=== PATIENT | female | born 1955 | race Hispanic/Latino ===

== ENCOUNTER 2018-02-21 11:12 | Outpatient (CLI) | payer BC | END 2018-02-21 11:13 | disposition home or self-care (01) | LOC: BICRAD 11:12 | PROVIDERS: ATTEND Internal Medicine | DX: M54.5 Low back pain (principal); M54.6 Pain in thoracic spine; M47.896 Other spondylosis, lumbar region; M47.894 Other spondylosis, thoracic region; M25.78 Osteophyte, vertebrae | CPT/HCPCS: 72072; 72100 ==

== ENCOUNTER 2018-03-07 10:50 | Outpatient (CLI) | payer BC ==
--- NOTE | 2018-03-07 14:08 | ULT ---
ULTRASOUND ABDOMEN: Date: 03/07/18 HISTORY: Abdominal pain. COMPARISON: Abdomen ultrasound from 2016. TECHNIQUE: Real-time Tam scale and color evaluation of the abdomen was performed. FINDINGS: The visualized portion of the pancreas is unremarkable. There is increased hepatic texture. Prior cho lecystectomy. Visualized portions of the aorta and IVC are unremarkable. Portal vein is patent. The common bile duct size is upper limits of normal, measuring under 1.0 cm, although can be reservoi r effect. Right kidney measures 9.1 x 4.8 x 6.5 c. Left kidney measures 10.1 x 5.1 x 6.1 cm. No renal mass, hyd ronephrosis or abnormal calcifications. Spleen measured 11.0 cm in length. IMPRESSION: 1. Increased hepatic texture suggest steatosis. 2. Likely reservoir effect of common bile duct. POS: [facility]
== END 2018-03-07 10:51 | disposition home or self-care (01) ==
LOC: ULT 10:50
PROVIDERS: ATTEND Internal Medicine
DX: R10.11 Right upper quadrant pain (principal); K76.89 Other specified diseases of liver
CPT/HCPCS: 76700

== ENCOUNTER 2018-05-09 08:23 | Outpatient (CLI) | payer BC ==
--- NOTE | 2018-05-09 11:09 | MRI ---
MRI OF THE ABDOMEN WITHOUT CONTRAST: Date 05/09/18 INDICATION: History of abnormal CT and ultrasound evaluation. COMPARISON: Prior abdominal ultrasound dated 03/07/18. TECHNIQUE: Multiplanar, multisequence MR images were obtained of the abdomen without IV contrast utilizing a [facility] P protocol. FINDINGS: The bone marrow signal intensity appears within normal limits. The spleen measures 11.4 cm in length. There are tiny subcentimeter cysts within both kidneys. The gallbladder is surgically absent. The common bile duct is dilated, measuring 1.2 cm, which is sli ghtly more prominent than on the ultrasound examination dated 03/07/18. There is mild intrahepatic bi liary ductal dilatation. Pancreas, adrenal glands, spleen, and kidneys demonstrate a normal signal intensity. No enlarged lymp h nodes or free fluid is evident. There is mild fatty infiltration of the liver seen on in and [id number] images. IMPRESSION: 1. Some slight dilatation of the common bile duct, likely related to reservoir effect on patient's p ost cholecystectomy state. 2. Mild fatty liver. 3. Small, subcentimeter, cysts bilaterally. POS: [facility]
== END 2018-05-09 08:24 | disposition home or self-care (01) ==
LOC: MRI 08:23
PROVIDERS: ATTEND Internal Medicine Gastroenterology
DX: R10.11 Right upper quadrant pain (principal); R93.89 Abnormal findings on diagnostic imaging of other specified body structures; N28.1 Cyst of kidney, acquired; K76.0 Fatty (change of) liver, not elsewhere classified; K83.8 Other specified diseases of biliary tract
CPT/HCPCS: 74181

== ENCOUNTER 2018-12-15 13:57 | Emergency (ER) | payer BC ==
[2018-12-15 14:37] LABS: #Basophils 0.1 thou/uL (0.0-0.2); #Eosinphils 0.4 thou/uL (0.0-0.7); #Lymphocytes 1.4 thou/uL (1.20-3.40); #Monocytes 0.4 thou/uL (0.11-0.59); #Neutrophils 6.1 thou/uL (1.40-6.50); %Basophils 0.9 % (0.0-1.0); %Eosinophils 4.7 % (0.0-10.0); %Lymphocytes 16.8 % (21.0-51.0); %Monocytes 4.6 % (0.0-10.0); Hemoglobin 13.3 g/dL (12.0-16.0); Mean Corpuscular HGB CONC 33.2 g/dL (32.0-36.0); Mean Corpuscular Hemoglobin 30.4 pg (27.0-31.0); Mean Corpuscular Volume 91.7 fL (78.0-98.0); Mean Platelet Volume 8.7 fL (7.4-10.4); Platelet Count 250 thou/uL (130-400); RBC Distribution Width 12.8 % (11.5-14.5); Red Blood Cell (RBC) Count 4.36 mill/uL (4.20-5.40); White Blood Cell (WBC) Count 8.4 thou/uL (4.8-10.8)
[2018-12-15 14:42] LABS: ALT (SGPT) 12 U/L (8-55); AST (SGOT) 12 U/L (5-34); Albumin 3.7 g/dL (3.4-4.8); Alkaline Phosphatase 114 U/L (40-150); Anion Gap 13 mmol/L (10-20); BUN (Urea Nitrogen) 14 mg/dL (9.8-20.1); Bilirubin, Total 0.8 mg/dL (0.2-1.2); CK (CPK) 94 U/L (29-168); Calc. Creatinine Clearance 0 mL/min (70-130); Calcium 8.9 mg/dL (7.8-10.44); Carbon Dioxide 28 mmol/L (23-31); Chloride 104 mmol/L (98-107); Estimated GFR-MDRD 71; Globulin 2.7 g/dL (2.4-3.5); Glucose 109 mg/dL (80-115); Lipase 23 U/L (8-78); Potassium 3.1 mmol/L (3.5-5.1); Protein, Total 6.4 g/dL (6.0-8.3); Sodium 142 mmol/L (136-145)
--- NOTE | 2018-12-15 14:50 | RAD ---
PORTABLE CHEST: HISTORY: Epigastric and chest pain. FINDINGS: Heart size and mediastinum are within normal limits. Lungs are clear of infiltrates. No significant bony findings. IMPRESSION: No active intrathoracic disease. POS: [facility]
[2018-12-15] MEDS ORDERED: Aspirin Chewable 81 MG TAB ONE ×2 (16:28)
[2018-12-15 16:37] LABS: Bilirubin Negative (Negative); Blood, Urine Negative (Negative); Clarity CLEAR (Clear); Glucose, Urine (Dipstick) Negative (Negative); Leukocyte Trace (Negative); Nitrite Negative (Negative); Protein, Urine (Dipstick) Negative (Neg-Trace); Specific Gravity, Urine 1.017 (1.002-1.036); Urobilinogen 0.2 mg/dL (0.2-1.0)
[2018-12-15 17:07] LABS: RBC/HPF None Seen HPF (0-3); Squamous Epithelial 0-3 HPF (0-3); WBC/HPF 0-3 HPF (0-3)
[2018-12-15 17:08] LABS: Bacteria/HPF None Seen HPF (None Seen); Hyaline Casts/LPF NONE SEEN LPF (0-3 Hyaline)
[2018-12-15 18:35] LABS: Troponin I Less than 0.010 ng/mL (< 0.028)
== END 2018-12-15 18:50 | disposition home or self-care (01) ==
LOC: ERS 13:57
DX: R10.13 Epigastric pain (principal); R11.0 Nausea; R53.83 Other fatigue
CPT/HCPCS: 36415; 71045; 80053; 81003; 81015; 82550; 83690; 83880; 84484; 85025; 93005

== ENCOUNTER 2020-08-16 08:34 | Outpatient (CLI) | payer MEDICARE ==
--- NOTE | 2020-08-16 09:05 | ULT ---
GALLBLADDER ULTRASOUND: HISTORY: Right upper quadrant abdominal pain FINDINGS: The liver demonstrates increased echogenicity without focal mass or intrahepatic biliary ductal dilat ation.The patient is post cholecystectomy. The right kidney is normal. The pancreas is not well visualized due to overlying bowel gas.The common duct [id number] in diameter. No free fluid is seen in the Lara's pouch. IMPRESSION: 1. Fatty liver 2. Status post cholecystectomy with dilated bile duct.
== END 2020-08-16 08:35 | disposition home or self-care (01) ==
LOC: BICULT 08:34
PROVIDERS: ATTEND Physician Assistant Medical
DX: R10.11 Right upper quadrant pain (principal); K76.0 Fatty (change of) liver, not elsewhere classified; K21.9 Gastro-esophageal reflux disease without esophagitis; E66.01 Morbid (severe) obesity due to excess calories; K83.8 Other specified diseases of biliary tract; Z90.49 Acquired absence of other specified parts of digestive tract
CPT/HCPCS: 76705

== ENCOUNTER 2021-07-17 20:26 | Inpatient (IN) | payer MEDICARE ==
[2021-07-17] MEDS ORDERED: Acetaminophen 500 MG TAB ONE (22:28)
[2021-07-17] MEDS ORDERED: Ketorolac Tromethamine 30 MG/ML VIAL ONE (22:28)
[2021-07-17 22:58] LABS: #Eosinphils 0.1 thou/uL (0.0-0.7); #Monocytes 0.9 thou/uL (0.11-0.59); #Neutrophils 11.5 thou/uL (1.40-6.50); %Basophils 0.3 % (0.0-1.0); %Eosinophils 0.9 % (0.0-10.0); %Lymphocytes 7.6 % (21.0-51.0); %Monocytes 6.8 % (0.0-10.0); %Neutrophils 84.4 % (42.0-75.0); Hemoglobin 13.7 g/dL (12.0-16.0); Mean Corpuscular HGB CONC 32.6 g/dL (32.0-36.0); Mean Corpuscular Volume 91.8 fL (78.0-98.0); Mean Platelet Volume 8.2 fL (7.4-10.4); Platelet Count 246 thou/uL (130-400); RBC Distribution Width 12.8 % (11.5-14.5); Red Blood Cell (RBC) Count 4.57 mill/uL (4.20-5.40); White Blood Cell (WBC) Count 13.6 thou/uL (4.8-10.8)
[2021-07-17] MEDS ORDERED: Azithromycin 500 MG VIAL ONE (23:06)
[2021-07-17] MEDS ORDERED: cefTRIAXone\\ROCEPHIN 1 GM VIAL ONE (23:06)
[2021-07-17 23:19] LABS: ALT (SGPT) 18 U/L (8-55); AST (SGOT) 12 U/L (5-34); Albumin 3.6 g/dL (3.4-4.8); Alkaline Phosphatase 94 U/L (40-110); Anion Gap 14 mmol/L (10-20); BUN (Urea Nitrogen) 16 mg/dL (9.8-20.1); Bilirubin, Total 0.6 mg/dL (0.2-1.2); Calc. Creatinine Clearance 0 mL/min (70-130); Calcium 8.2 mg/dL (7.8-10.44); Carbon Dioxide 28 mmol/L (23-31); Chloride 101 mmol/L (98-107); Globulin 3.1 g/dL (2.4-3.5); Glucose 166 mg/dL (80-115); Potassium 3.3 mmol/L (3.5-5.1); Protein, Total 6.7 g/dL (5.8-8.1); Sodium 140 mmol/L (136-145)
[2021-07-18] MEDS ORDERED: Benzonatate 100 MG CAP PO PRN (00:46)
[2021-07-18] MEDS ORDERED: HumaLOG 300 UNITS/3 ML VIAL SC PRN ×2 (00:50)
[2021-07-18] MEDS ORDERED: Dextrose 5% in Water 1,000 ML IV PRN (00:50)
[2021-07-18] MEDS ORDERED: Dextrose 50% Abboject 50 ML SYRINGE SLOW IVP PRN (00:50)
[2021-07-18] MEDS ORDERED: Albuterol Sulfate 2.5 mg/3 ml Neb NEB PRN (00:51)
[2021-07-18] MEDS ORDERED: Ondansetron PF 4 MG/2 ML Vial IVP PRN (00:53)
[2021-07-18] MEDS ORDERED: Ondansetron ODT 4 MG TAB PO PRN (00:53)
[2021-07-18] MEDS ORDERED: Senokot S 8.6-50 MG TAB PO PRN (00:53)
[2021-07-18] MEDS: Acetaminophen 325 MG TAB PO PRN ×2 (01:14→08:48)
[2021-07-18] MEDS ORDERED: Morphine 4 MG/ML VIAL SLOW IVP PRN (01:17)
[2021-07-18 01:52] VITALS: BMI 43.4
[2021-07-18] MEDS: Sodium Chloride 0.9% 1,000 ML IV SCH ×2 (01:54→09:50)
[2021-07-18] MEDS ORDERED: Potassium Chloride 20 MEQ TAB PO SCH (02:00)
[2021-07-18 02:52] LABS: SARS-CoV-2 NAA Rapid Test Not Detected (NotDetected)
[2021-07-18 04:05] LABS: Magnesium 1.8 mg/dL (1.6-2.6)
[2021-07-18 05:51] LABS: #Eosinphils 0.2 thou/uL (0.0-0.7); #Lymphocytes 1.6 thou/uL (1.20-3.40); #Monocytes 1.1 thou/uL (0.11-0.59); #Neutrophils 8.1 thou/uL (1.40-6.50); %Basophils 0.3 % (0.0-1.0); %Eosinophils 1.7 % (0.0-10.0); %Lymphocytes 14.7 % (21.0-51.0); %Monocytes 9.9 % (0.0-10.0); %Neutrophils 73.4 % (42.0-75.0); Hemoglobin 11.3 g/dL (12.0-16.0); Mean Corpuscular HGB CONC 32.9 g/dL (32.0-36.0); Mean Corpuscular Hemoglobin 30.4 pg (27.0-31.0); Mean Corpuscular Volume 92.5 fL (78.0-98.0); Mean Platelet Volume 7.8 fL (7.4-10.4); Platelet Count 193 thou/uL (130-400); RBC Distribution Width 12.6 % (11.5-14.5); Red Blood Cell (RBC) Count 3.72 mill/uL (4.20-5.40); White Blood Cell (WBC) Count 11.1 thou/uL (4.8-10.8)
[2021-07-18 06:13] LABS: Anion Gap 10 mmol/L (10-20); BUN (Urea Nitrogen) 16 mg/dL (9.8-20.1); Calc. Creatinine Clearance 95 mL/min (70-130); Calcium 7.5 mg/dL (7.8-10.44); Carbon Dioxide 24 mmol/L (23-31); Chloride 106 mmol/L (98-107); Glucose 118 mg/dL (80-115); Potassium 3.2 mmol/L (3.5-5.1); Sodium 137 mmol/L (136-145)
[2021-07-18] MEDS ORDERED: predniSONE 20 MG TAB PO SCH (08:00)
[2021-07-18] MEDS ORDERED: Famotidine 20 MG TAB PO SCH (09:00)
[2021-07-18] MEDS ORDERED: Enoxaparin Sodium 40 MG/0.4 ML SYRINGE SC SCH (09:00)
[2021-07-18 10:09] LABS: Bacteria/HPF None Seen HPF (None Seen); Bilirubin Negative (Negative); Blood, Urine Negative (Negative); Clarity Clear (Clear); Glucose, Urine (Dipstick) Normal (Negative); Ketone, Urine Negative (Negative); Leukocyte Negative Leu/uL (Negative); Nitrite Negative (Negative); Protein, Urine (Dipstick) 20 mg/dL (Neg-Trace); Squamous Epithelial 0-3 HPF (0-3); Urobilinogen Normal mg/dL (Less than 2); WBC/HPF 0-3 HPF (0-3); pH, Urine 6.5 (5.0-9.0)
[2021-07-18 10:12] LABS: Specific Gravity, Urine Greater than 1.060 (1.002-1.036)
[2021-07-18 10:13] LABS: Urine Culture Reflex No No
[2021-07-18 10:35] LABS: Legionella Urinary Ag Negative (Negative); Strep pneumo Urine Ag NEGATIVE (NEGATIVE)
[2021-07-18 12:04] VITALS: BP 111/73; TEMP 98.6
[2021-07-18] MEDS ORDERED: Cefdinir 300 MG CAP PO SCH (14:45)
[2021-07-18] MEDS ORDERED: Azithromycin 250 MG TAB PO SCH ×2 (14:45→15:45)
[2021-07-18] MEDS ORDERED: cefTRIAXone\\ROCEPHIN 1 GM in Sodium Chloride 0.9% 100 ML IVPB SCH (23:00)
[2021-07-18] MEDS ORDERED: Azithromycin 500 MG in Sodium Chloride 0.9% 250 ML 250 ML IVPB SCH (23:00)
[2021-07-21] MEDS ORDERED: FLU VACC QS2021-22(6MOS UP)/PF 60 MCG/0.5 ML SYRINGE IM ONE (09:00)
== END 2021-07-18 16:38 | disposition home or self-care (01) | DRG 871 ==
LOC: ERS 20:26 → T4-A 23:51
PROVIDERS: ADMIT Student in an Organized Health Care Education/Training Program; ATTEND Student in an Organized Health Care Education/Training Program
DX: A41.9 Sepsis, unspecified organism (principal); J18.9 Pneumonia, unspecified organism; J96.01 Acute respiratory failure with hypoxia; E03.9 Hypothyroidism, unspecified; E78.5 Hyperlipidemia, unspecified; F32.A Depression, unspecified; K21.9 Gastro-esophageal reflux disease without esophagitis; E78.00 Pure hypercholesterolemia, unspecified; D64.9 Anemia, unspecified; I10 Essential (primary) hypertension; E11.9 Type 2 diabetes mellitus without complications; J45.909 Unspecified asthma, uncomplicated; E87.6 Hypokalemia; Z83.3 Family history of diabetes mellitus; Z82.49 Family history of ischemic heart disease and other diseases of the circulatory system; Z84.1 Family history of disorders of kidney and ureter; Z83.1 Family history of other infectious and parasitic diseases; Z87.442 Personal history of urinary calculi; Z98.51 Tubal ligation status; Z90.710 Acquired absence of both cervix and uterus; Z90.49 Acquired absence of other specified parts of digestive tract; Z79.84 Long term (current) use of oral hypoglycemic drugs; Z79.890 Hormone replacement therapy; Z79.51 Long term (current) use of inhaled steroids; Z79.899 Other long term (current) drug therapy; Z80.42 Family history of malignant neoplasm of prostate
CPT/HCPCS: 0240U; 36415; 36416; 71045; 71275; 80048; 80053; 81001; 83605; 83735; 83880; 84484; 85025; 87040; 87449; 87899; 93005; 94640; 96365; 96367; 96368; J0456; J0696; J1650; J1885; J7050; J7512; J7620; Q0162

== ENCOUNTER 2023-07-09 21:34 | Emergency (ER) | payer MEDICARE ==
[2023-07-09 22:27] LABS: #Basophils 0.1 thou/uL (0.0-0.2); #Eosinphils 0.4 thou/uL (0.0-0.7); #Monocytes 0.5 thou/uL (0.11-0.59); #Neutrophils 6.7 thou/uL (1.40-6.50); %Basophils 0.7 % (0.0-1.0); %Eosinophils 4.4 % (0.0-10.0); %Lymphocytes 19.4 % (21.0-51.0); %Monocytes 5.6 % (0.0-10.0); %Neutrophils 69.7 % (42.0-75.0); Hematocrit 39.6 % (36.0-47.0); Hemoglobin 12.7 g/dL (12.0-16.0); Mean Corpuscular HGB CONC 32.1 g/dL (32.0-36.0); Mean Corpuscular Volume 90.4 fl (78.0-98.0); Mean Platelet Volume 10.4 fL (7.4-10.4); Platelet Count 283 10x3/uL (130-400); Red Blood Cell (RBC) Count 4.38 mill/uL (4.20-5.40); White Blood Cell (WBC) Count 9.6 10x3/uL (4.8-10.8)
[2023-07-09 22:49] LABS: ALT (SGPT) 15 U/L (8-55); AST (SGOT) 16 U/L (5-34); Albumin 3.9 g/dL (3.4-4.8); Alkaline Phosphatase 135 U/L (40-110); Anion Gap 13 mmol/L (10-20); BUN (Urea Nitrogen) 16 mg/dL (9.8-20.1); Bilirubin, Total 0.5 mg/dL (0.2-1.2); Calc. Creatinine Clearance 0 mL/min (70-130); Calcium 8.6 mg/dL (7.8-10.44); Carbon Dioxide 27 mmol/L (23-31); Chloride 105 mmol/L (98-107); Estimated GFR 57; Globulin 3.2 g/dL (2.4-3.5); Glucose 144 mg/dL (80-115); Lipase 33 U/L (8-78); Magnesium 2.2 mg/dL (1.6-2.6); Potassium 3.4 mmol/L (3.5-5.1); Protein, Total 7.1 g/dL (5.8-8.1); Sodium 142 mmol/L (136-145)
[2023-07-09 23:19] LABS: Troponin I Less than 0.010 ng/mL (< 0.028)
[2023-07-10] MEDS ORDERED: Ketorolac Tromethamine 30 MG/ML VIAL ONE (00:03)
== END 2023-07-10 00:28 | disposition home or self-care (01) ==
LOC: ERS 21:34
DX: S29.011A Strain of muscle and tendon of front wall of thorax, initial encounter (principal); E11.9 Type 2 diabetes mellitus without complications; J45.909 Unspecified asthma, uncomplicated; Z79.84 Long term (current) use of oral hypoglycemic drugs; Z79.51 Long term (current) use of inhaled steroids; X58.XXXA Exposure to other specified factors, initial encounter
CPT/HCPCS: 36415; 71045; 80053; 83690; 83735; 83880; 84484; 85025; 93005; 96372; J1885